=== PATIENT | male | born 1955 ===

== ENCOUNTER → 2019-10-23 | Outpatient (CLI) | payer OTHER | LOC: FB.MILNOR 10-22 15:03 → FB.DI 13:13 | PROVIDERS: ATTEND Nurse Practitioner Family | DX: M54.5 Low back pain (principal); M72.2 Plantar fascial fibromatosis; M47.816 Spondylosis without myelopathy or radiculopathy, lumbar region | CPT/HCPCS: 72100; 73521; 73630-50 ==